=== PATIENT | female | born 1995 | race Two or more races ===

== ENCOUNTER 2022-07-11 13:06 | Emergency (ER) | payer OTHER ==
[~2022-07-11] VITALS: Ht 149.9 cm; Wt 61.2 kg
== END 2022-07-11 17:56 | disposition home or self-care (01) ==
LOC: EMR PED 13:06 → ER 13:11 → EMR PED 13:11 → ER 17:56
DX: O20.9 Hemorrhage in early pregnancy, unspecified (principal)